=== PATIENT | male | born 1940 | race Caucasian/White ===

== ENCOUNTER 2017-08-04 13:19 | Emergency (ER) | payer MEDICARE, OTHER ==
[2017-08-04] MEDS ORDERED: Bupivacaine 0.5% 30 ML SDV ONE (14:05)
[2017-08-04] MEDS ORDERED: Sodium Chloride 0.9% 10 ML Syringe FLUSH PRN (14:24)
--- NOTE | 2017-08-04 14:28 | EDM.PDOC ---
ED HPI GENERAL MEDICAL PROBLEM - General Chief Complaint: Skin Complaint Stated Complaint: R RING FINGER CUT Time Seen by Provider: 08/04/17 14:00 Source of Information: Reports: Patient, Family History Limitations: Reports: No Limitations - History of Present Illness INITIAL COMMENTS - FREE TEXT/NARRATIVE: 77-year-old male amputated the distal aspect of his index finger on the left hand with a table saw. It happened just prior to coming into the hospital. No other injury. Onset: Sudden Duration: Hour(s): Severity: Moderate Associated Symptoms: Reports: No Other Symptoms - Related Data Allergies Allergy/AdvReac Type Severity Reaction Status Date / Time No Known Allergies Allergy Verified 01/23/14 11:53 Past Medical History Cardiovascular History: Reports: Heart Murmur Oncologic (Cancer) History: Reports: Prostate Other Oncologic History: seeds placed 1 yr ago - Past Surgical History HEENT Surgical History: Reports: Tonsillectomy Social & Family History - Tobacco Use Smoking Status *Q: Never Smoker ED ROS GENERAL - Review of Systems Review Of Systems: See Below Constitutional: Denies: Fever, Chills Respiratory: Denies: Shortness of Breath Cardiovascular: Denies: Chest Pain GI/Abdominal: Denies: Nausea, Vomiting Neurological: Reports: No Symptoms ED EXAM, SKIN/RASH Exam: See Below Exam Limited By: No Limitations General Appearance: Alert, No Apparent Distress Respiratory/Chest: No Respiratory Distress Extremities: Other (Exam is otherwise limited to the left hand. The patient has a transverse amputation of the index finger through the middle phalanx proximal to the DIP joint) Course - Vital Signs Last Recorded V/S: Last Vital Signs Temp 97.0 F 08/04/17 13:41 Pulse 68 08/04/17 13:41 Resp 14 08/04/17 13:41 BP 161/85 H 08/04/17 13:41 Pulse Ox 98 08/04/17 13:41 - Orders/Labs/Meds Orders: Active Orders 24 hr Category Date Time Status Fingers Second Digit Lt F1 [CR] Stat Exams 08/04/17 14:24 Taken Saline Lock Insert [OM.PC] Routine Oth 08/04/17 14:24 Ordered Meds: Medications Discontinued Medications Generic Name Dose Route Start Last Admin Trade Name Freq PRN Reason Stop Dose Admin Bupivacaine HCl Confirm 08/04/17 14:05 Marcaine 0.5% Administered 08/04/17 14:06 Dose 30 ml .ROUTE .STK-MED ONE Bupivacaine HCl 30 ml 08/04/17 15:56 08/04/17 16:01 Marcaine 0.5% INFILT 08/04/17 15:57 30 ml ONETIME ONE Administration Cefazolin Sodium/Dextrose 1 gm 50 mls @ 100 mls/hr 08/04/17 14:32 08/04/17 15 :44 / Premix IV 08/04/17 14:53 100 mls/hr ONETIME ONE Administration Sodium Chloride 10 ml 08/04/17 14:24 08/04/17 15:42 Saline Flush FLUSH 10 ml ASDIRECTED PRN Administration Keep Vein Open - Re-Assessments/Exams Free Text/Narrative Re-Assessment/Exam: 08/04/17 14:27 The distal finger was placed on ice, and phone consultations were made to hand surgery and transplant surgery. The advice was to not try to reattach the finger because of his age and the distal nature of the amputation. Orthopedics was then consult at for closure, a finger x-ray was taken and a bupivacaine block was placed in to the finger. Dr. Randall of the orthopedics Department at [facility] was kind enough to see the patient in the emergency room and close the finger. 08/04/17 15:03 After the procedure the patient was discharged on cephalexin 500 mg 3 times a day, given 20 hydrocodone and will recheck in the orthopedic department next Monday. Departure - Departure Time of Disposition: 16:25 Disposition: Home, Self-Care 01 Condition: Good Clinical Impression: Traumatic amputation of finger of left hand Qualifiers: Encounter type: initial encounter Qualified Code(s): S68.119A - Complete traumatic metacarpophalangeal amputation of unspecified finger, initial encounter - Discharge Information Instructions: Sutured Wound Care, [id number] Referrals: Mario Rios MD [Primary Care Provider] - Forms: ED Department Discharge Care Plan Goals: Keep wound covered and clean while healing. Take antibiotic as prescribed, pain medications as needed and recheck in the orthopedic clinic next Monday. Return to the emergency room sooner if you develop concerns. - My Orders Last 24 Hours: My Active Orders 08/04/17 14:24 Fingers Second Digit Lt F1 [CR] Stat Saline Lock Insert [OM.PC] Routine - Assessment/Plan Last 24 Hours: My Active Orders 08/04/17 14:24 Fingers Second Digit Lt F1 [CR] Stat Saline Lock Insert [OM.PC] Routine
[2017-08-04] MEDS ORDERED: ceFAZolin 1 GM in Premix Bag 1 BAG IV ONE (14:32)
[2017-08-04] MEDS ORDERED: Bupivacaine 0.5% 30 ML SDV INFILT ONE (15:56)
--- NOTE | 2017-08-08 08:43 | CR ---
Fingers Second Digit Lt F1 INDICATION: injury COMPARISON: None FINDINGS: 3 views. Amputation injury at the level of the proximal end of the middle phalanx of the second digit.
--- NOTE | 2017-08-08 09:45 | CONS ---
DATE OF SERVICE: 08/04/2017 CONSULTING PHYSICIAN: KYLE Nassar REFERRED BY: ED provider. HISTORY OF PRESENT ILLNESS: The patient is a 77-year-old gentleman, who came with a diagnosis of a traumatic amputation at middle phalanx, left index. Plan irrigation and debridement, revision of amputation, and closure of the wound. The patient is a 77-year-old gentleman, who was working with a saw and had an amputation of the finger. He brought the finger with him, and he came to [facility], where the ER provider called a hand surgeon, and they advised that they do not do implantation of this type of injury; hence, Orthopedics was consulted. The patient denied any other injury. PAST MEDICAL HISTORY: Reviewed. REVIEW OF SYSTEMS: No symptoms of cough, breathlessness, or chest pain. PHYSICAL EXAMINATION: Left hand revealed traumatic amputation transversely at the middle phalanx level. The rest of the finger was lying separately. There was some oozing from the wound. X-ray was reviewed, which showed that part of the middle phalanx was left over, and the rest of it was gone. The patient could, a little bit, flex and extend. At this stage, we had discussion with the patient that we need to revise it to close the skin. The patient's tetanus was updated, and antibiotic was given. Before I reached there, the patient already had a digital block, which was given by the ER provider. The patient agreed to the revision of the amputation and closure of the wound. KYLE Nassar /[id number]
--- NOTE | 2017-08-08 10:19 | OR ---
DATE OF PROCEDURE: 08/04/2017 PREOPERATIVE DIAGNOSIS: Traumatic amputation, middle phalanx, labeled left index finger. POSTOPERATIVE DIAGNOSIS: Traumatic amputation, middle phalanx, labeled left index finger. PROCEDURES DONE: 1. Irrigation and debridement. 2. Revision of the amputation with closure of the wound. DESCRIPTION OF PROCEDURE: The patient was seen in the emergency room. The patient already had received digital block from the ER provider. Informed consent was taken after that. Time-out was done. The patient already had received the antibiotic, and he is updated for tetanus. Irrigation and debridement of the hand was done, after scrubbing, prepping, and draping of the left index finger. The bone was exposed. Wound was tamed a little bit with the help of the nibbler, and then skin was approximated with 3-0 nylon. Dressing was done with Xeroform, 4 x 4, and Cullen. The patient tolerated the procedure well. The patient's finger was splinted, and he will go home today. He will be going on antibiotic and painkiller. He will be back on Monday or Monday in the Ortho Clinic for wound inspection, but if there is any concern before that during the weekend, he will come to the emergency room. The patient was explained about it, as well as the ER provider was also informed. KYLE Nassar /[id number]
== END 2017-08-04 16:26 | disposition home or self-care (01) ==
LOC: JP.ED 13:19
DX: S68.611A Complete traumatic transphalangeal amputation of left index finger, initial encounter (principal); W31.2XXA Contact with powered woodworking and forming machines, initial encounter
CPT/HCPCS: 64450; 73140; 96365; 99283; 99284; J0690; J7050; 64400

== ENCOUNTER 2021-02-26 15:23 | Emergency (ER) | payer MEDICARE, OTHER ==
--- NOTE | 2021-02-26 16:49 | EDM.PDOC ---
ED HPI GENERAL MEDICAL PROBLEM - General Chief Complaint: Respiratory Problem Stated Complaint: SOB, CHEST PAIN Time Seen by Provider: 02/26/21 16:35 History Limitations: Reports: No Limitations - History of Present Illness INITIAL COMMENTS - FREE TEXT/NARRATIVE: 80 year old male presenting with shortness of breath. The patient reports increasing shortness of breath over the past one month. He reports that he feels like he is breathing faster than normal and breathing more shallow than normal. He denies associated fever, chills, or cough. The SOB is not positional or activity related. He reports associated chest discomfort that he describes as feeling like he is suffocating. no history of DVT/PE. No leg swelling. - Related Data Allergies Allergy/AdvReac Type Severity Reaction Status Date / Time No Known Allergies Allergy Verified 02/26/21 16:24 Home Meds: Home Meds NK [No Known Home Meds] 02/26/21 [History] Past Medical History Cardiovascular History: Reports: Heart Murmur Oncologic (Cancer) History: Reports: Prostate Other Oncologic History: seeds placed 1 yr ago - Past Surgical History HEENT Surgical History: Reports: Tonsillectomy Social & Family History - Family History Family Medical History: No Pertinent Family History - Tobacco Use Tobacco Use Status *Q: Never Tobacco User ED ROS GENERAL - Review of Systems Review Of Systems: Comprehensive ROS is negative, except as noted in HPI. ED EXAM, GENERAL - Physical Exam Exam: See Below Exam Limited By: No Limitations General Appearance: Alert, No Apparent Distress Nose: Normal Inspection Throat/Mouth: Normal Inspection Head: Atraumatic, Normocephalic Neck: Supple, Full Range of Motion Respiratory/Chest: No Respiratory Distress, Lungs Clear, No Accessory Muscle Use, Crackles (bases bilaterally) Cardiovascular: Normal Peripheral Pulses, Regular Rate, Rhythm, No Edema GI/Abdominal: Soft, Non-Tender Extremities: Normal Range of Motion. No: Pedal Edema Neurological: Alert, Oriented, CN II-XII Intact, Normal Cognition, No Motor/Sensory Deficits Psychiatric: Normal Affect, Normal Mood Skin Exam: Warm, Dry #1 Interpretation EKG Date: 02/26/21 Time: 17:05 Rhythm: Other (Sinus Bradycardia) Rate (Beats/Min): 57 P-Wave: Present QRS: Other (Incomplete RBBB) ST-T: Normal NM/PQ Interval: NM interval is borderline prolonged Comparison: NA - No Prior EKG Course - Vital Signs Last Recorded V/S: Last Vital Signs Temp 97.1 F 02/26/21 16:25 Pulse 53 L 02/26/21 19:51 Resp 15 02/26/21 19:51 BP 159/75 H 02/26/21 19:51 Pulse Ox 99 02/26/21 19:51 - Orders/Labs/Meds Orders: Active Orders 24 hr Category Date Time Status EKG Documentation Completion [RC] ASDIRECTED Care 02/26/21 16:41 Active Chest 2V [CR] Stat Exams 02/26/21 16:46 Taken Iopamidol [Isovue-370 (76%)] Med 02/26/21 18:45 Active 70 ml IV . DIRECTED Sodium Chloride 0.9% [Normal Saline] 1,000 ml Med 02/26/21 19:15 Active IV ASDIRECTED Sodium Chloride 0.9% [Normal Saline] 100 ml Med 02/26/21 18:45 Active IV ASDIRECTED Isolation [COMM] Stat Oth 02/26/21 16:49 Ordered EKG 12 Lead [EK] Stat Ther 02/26/21 16:40 Ordered Medication Orders Sodium Chloride (Normal Saline) 100 mls @ 3.5 mls/sec IV ASDIRECTED THEODORE Last Admin: 02/26/21 18:57 Dose: 4 mls/sec Documented by: LILA Sodium Chloride (Normal Saline) 1,000 mls @ 1,000 mls/hr IV ASDIRECTED THEODORE Iopamidol (Iopamidol 755 Mg/Ml 100 Ml Bottle) 70 ml IV . DIRECTED [facility] Last Admin: 02/26/21 18:57 Dose: 70 ml Documented by: LILA Labs: Laboratory Tests 02/26/21 02/26/21 02/26/21 Range/Units 17:04 17:04 17:04 WBC 7.0 (4.5-11.0) K/uL RBC 4.17 L (4.30-5.90) M/uL Hgb 12.9 (12.0-15.0) g/dL Hct 38.2 L (40.0-54.0) % MCV 92 (80-98) fL MCH 31 (27-31) pg MCHC 34 (32-36) % Plt Count 218 (150-400) K/uL Neut % (Auto) 57.6 (36-66) % Lymph % (Auto) 26.9 (24-44) % [place] % (Auto) 13.3 H (2-6) % Eos % (Auto) 1.9 L (2-4) % Baso % (Auto) 0.3 (0-1) % Sodium 141 (140-148) mmol/L Potassium 4.6 (3.6-5.2) mmol/L Chloride 106 (100-108) mmol/L Carbon Dioxide 29 (21-32) mmol/L Anion Gap 6.2 (5.0-14.0) mmol/L BUN 18 (7-18) mg/dL Creatinine 1.4 H (0.8-1.3) mg/dL Est Cr Clr Drug Dosing 44.65 mL/min Estimated GFR (MDRD) 49 L (>60) Glucose 91 (74-106) mg/dL Calcium 8.8 (8.5-10.1) mg/dL Total Bilirubin 0.3 (0.2-1.0) mg/dL AST 32 (15-37) U/L ALT 32 (12-78) U/L Alkaline Phosphatase 78 (46-116) U/L Troponin I < 0.017 (0.000-0.056) ng/mL NT-Pro-B Natriuret Pep 406 (5-450) pg/mL Total Protein 6.7 (6.4-8.2) g/dL Albumin 3.4 (3.4-5.0) g/dL Globulin 3.3 (2.3-3.5) g/dL Albumin/Globulin Ratio 1.0 L (1.2-2.2) Urine Color (YELLOW) Urine Appearance (CLEAR) Urine pH (5.0-8.0) Ur Specific [place] (1.008-1.030) Urine Protein (NEGATIVE) mg/dL Urine Glucose (UA) (NEGATIVE) mg/dL Urine Ketones (NEGATIVE) mg/dL Urine Occult Blood (NEGATIVE) Urine Nitrite (NEGATIVE) Urine Bilirubin (NEGATIVE) Urine Urobilinogen (0.2-1.0) EU/dL Ur Leukocyte Esterase (NEGATIVE) Urine RBC (0-5) Urine WBC (0-5) Ur Epithelial Cells Amorphous Sediment Urine Bacteria Urine Mucus Urine Other Influenza Type A RNA (NEGATIVE) RSV RNA (INAAT) (NEGATIVE) Influenza Type B RNA (NEGATIVE) SARS-CoV-2 RNA (DUSTIN) (NEGATIVE) 02/26/21 02/26/21 Range/Units 17:30 18:30 WBC (4.5-11.0) K/uL RBC (4.30-5.90) M/uL Hgb (12.0-15.0) g/dL Hct (40.0-54.0) % MCV (80-98) fL MCH (27-31) pg MCHC (32-36) % Plt Count (150-400) K/uL Neut % (Auto) (36-66) % Lymph % (Auto) (24-44) % [place] % (Auto) (2-6) % Eos % (Auto) (2-4) % Baso % (Auto) (0-1) % Sodium (140-148) mmol/L Potassium (3.6-5.2) mmol/L Chloride (100-108) mmol/L Carbon Dioxide (21-32) mmol/L Anion Gap (5.0-14.0) mmol/L BUN (7-18) mg/dL Creatinine (0.8-1.3) mg/dL Est Cr Clr Drug Dosing mL/min Estimated GFR (MDRD) (>60) Glucose (74-106) mg/dL Calcium (8.5-10.1) mg/dL Total Bilirubin (0.2-1.0) mg/dL AST (15-37) U/L ALT (12-78) U/L Alkaline Phosphatase (46-116) U/L Troponin I (0.000-0.056) ng/mL NT-Pro-B Natriuret Pep (5-450) pg/mL Total Protein (6.4-8.2) g/dL Albumin (3.4-5.0) g/dL Globulin (2.3-3.5) g/dL Albumin/Globulin Ratio (1.2-2.2) Urine Color Yellow (YELLOW) Urine Appearance Slightly cloudy A (CLEAR) Urine pH 7.0 (5.0-8.0) Ur Specific [place] 1.020 (1.008-1.030) Urine Protein Negative (NEGATIVE) mg/dL Urine Glucose (UA) Negative (NEGATIVE) mg/dL Urine Ketones Negative (NEGATIVE) mg/dL Urine Occult Blood Moderate H (NEGATIVE) Urine Nitrite Negative (NEGATIVE) Urine Bilirubin Negative (NEGATIVE) Urine Urobilinogen 0.2 (0.2-1.0) EU/dL Ur Leukocyte Esterase Negative (NEGATIVE) Urine RBC 75-100 H (0-5) Urine WBC Not seen (0-5) Ur Epithelial Cells Occasional Amorphous Sediment Few Urine Bacteria Few Urine Mucus Not seen Urine Other See note Influenza Type A RNA Negative (NEGATIVE) RSV RNA (INAAT) Negative (NEGATIVE) Influenza Type B RNA Negative (NEGATIVE) SARS-CoV-2 RNA (DUSTIN) Negative (NEGATIVE) Meds: Medications Generic Name Dose Route Start Last Admin Trade Name Freq PRN Reason Stop Dose Admin Sodium Chloride 100 mls @ 3.5 mls/sec 02/26/21 18:45 02/26/21 18:57 Normal Saline IV 4 mls/sec ASDIRECTED THEODORE Administration Sodium Chloride 1,000 mls @ 1,000 mls/hr 02/26/21 19:15 Normal Saline IV ASDIRECTED THEODORE Iopamidol 70 ml 02/26/21 18:45 02/26/21 18:57 Iopamidol 755 Mg/Ml 100 Ml Bottle IV 70 ml . DIRECTED THEODORE Administration Discontinued Medications Generic Name Dose Route Start Last Admin Trade Name Freq PRN Reason Stop Dose Admin Sodium Chloride 10 ml 02/26/21 18:34 02/26/21 18:57 Sodium Chloride 0.9% 10 Ml Syringe FLUSH 02/26/21 18:35 10 ml ONETIME ONE Administration Departure - Departure Time of Disposition: 20:15 Disposition: Home, Self-Care 01 Condition: Good Clinical Impression: Shortness of breath - Discharge Information Instructions: Shortness of Breath, Adult Referrals: PCP,None [Primary Care Provider] - Forms: ED Department Discharge Additional Instructions: The exact cause of your symptoms is not known at this time. However, we have ruled out serious causes such as infection and blood clots today. You do have a nodule in your lung that requires follow up in the clinic, but this is not likely the cause of your symptoms. Please follow up in clinic to establish care with a provider. Return to the emergency department for any new or worsening symptoms. Sepsis Event Note (ED) - Evaluation Sepsis Screening Result: No Definite Risk - Focused Exam Vital Signs: Vital Signs Temp Pulse Resp BP Pulse Ox 02/26/21 19:51 53 L 15 159/75 H 99 02/26/21 17:36 57 L 160/70 H 02/26/21 16:25 97.1 F 59 L 16 158/69 H 98 02/26/21 16:15 97.1 F 59 L 16 158/69 H 98 - Problem List Review Problem List Initiated/Reviewed/Updated: Yes - My Orders Last 24 Hours: My Active Orders 02/26/21 16:40 EKG 12 Lead [EK] Stat 02/26/21 16:41 EKG Documentation Completion [RC] ASDIRECTED 02/26/21 16:46 Chest 2V [CR] Stat 02/26/21 16:49 Isolation [COMM] Stat 02/26/21 18:45 Iopamidol [Isovue-370 (76%)] 70 ml IV . DIRECTED Sodium Chloride 0.9% [Normal Saline] 100 ml IV ASDIRECTED 02/26/21 19:15 Sodium Chloride 0.9% [Normal Saline] 1,000 ml IV ASDIRECTED - Assessment/Plan Last 24 Hours: My Active Orders 02/26/21 16:40 EKG 12 Lead [EK] Stat 02/26/21 16:41 EKG Documentation Completion [RC] ASDIRECTED 02/26/21 16:46 Chest 2V [CR] Stat 02/26/21 16:49 Isolation [COMM] Stat 02/26/21 18:45 Iopamidol [Isovue-370 (76%)] 70 ml IV . DIRECTED Sodium Chloride 0.9% [Normal Saline] 100 ml IV ASDIRECTED 02/26/21 19:15 Sodium Chloride 0.9% [Normal Saline] 1,000 ml IV ASDIRECTED Assessment:: This is an 80 year old male presenting with shortness of breath over the past month or so. He is afebrile here with normal oxygen saturations. Differential diagnosis considered includes but is not limited to ACS, CHF, PE, pneumonia, pneumothorax, among others. EKG did not show any evidence of acute ischemia. Troponin is negative. His symptoms are not exertional and I do not think they are cardiac in etiology. There is no evidence of pulmonary edema on CXR and BNP is normal, making CHF unlikely. The remainder of his labs are unremarkable aside from mild creatinine elevation at 1.4, baseline is not known as he does not see a provider regularly. CT pulmonary angio was obtained and did not show any evidence of aortic dissection or PE. A pulmonary nodule was noted, which the p [facility] states he was informed of previously. He will follow up in clinic for this. COVID and influenza are negative. There is no history of asthma or COPD and no wheezing on exam today to suggest these. The exact cause of his symptoms is not clear at this time, but serious pathology has been ruled out today. he has maintained normal oxygen saturations here without any respiratory distress. He was also noted to have hematuria, which he reports happens intermittently to him. He needs to follow up in clinic for this. He is appropriate for discharge home with close follow up in clinic to establish primary care. He was instructed to return to the ED for any new or worsening symptoms.
[2021-02-26 18:08] LABS: CORONAVIRUS COVID-19 NAA NEGATIVE (NEGATIVE)
[2021-02-26] MEDS ORDERED: Sodium Chloride 0.9% 10 ML Syringe FLUSH ONE (18:34)
[2021-02-26] MEDS ORDERED: Sodium Chloride 0.9% 100 ML IV SCH (18:45)
[2021-02-26] MEDS ORDERED: Iopamidol 755 Mg/ML 100 ML Bottle IV SCH (18:45)
[2021-02-26] MEDS ORDERED: Sodium Chloride 0.9% 1,000 ML IV SCH (19:15)
--- NOTE | 2021-02-26 19:56 | CRLCT ---
For Patients: As a result of the Century Cures Act, medical imaging exams and procedure reports are released immediately into your electronic medical record. You may view this report before your referring provider. If you have questions, please contact your health care provider. Indication: Shortness of breath evaluate for PE Technique: Contrast enhanced CT PE with 70 mL Isovue 370 Comparison: No comparison Findings: No thoracic aortic aneurysm. 5 millimeter right middle lobe pulmonary nodule series 5, image 99. Basilar atelectasis. No central endobronchial lesion. No pulmonary emboli seen. Nonobstructing punctate right renal calculus. Small hiatal hernia. No suspicious bony lesions. Impression: 1. No pulmonary emboli. 2. 5 millimeter right lower lobe pulmonary nodule follow-up per Fleischner society guidelines. Please note that all CT scans at this facility use dose modulation, iterative reconstruction, and/or weight-based dosing when appropriate to reduce radiation dose to as low as reasonably achievable. Dictated by Danna Sanchez MD @ 02/26/2021 7:55:[address] Danna Sanchez @ Feb 26 2021 7:55PM
--- NOTE | 2021-03-01 09:15 | CR ---
CHEST: 2 view CLINICAL HISTORY:Shortness of breath COMPARISON:None available FINDINGS: The heart size, pulmonary vascularity and hilar structures are normal. No infiltrate effusion or pneumothorax is seen. There are atherosclerotic changes in the aorta. IMPRESSION: No acute cardiopulmonary process.
== END 2021-02-26 20:28 | disposition home or self-care (01) ==
LOC: JP.ED 15:23
DX: R06.02 Shortness of breath (principal); Z20.822 Contact with and (suspected) exposure to COVID-19
CPT/HCPCS: 0241U; 36415; 71046; 71275; 80053; 81001; 83880; 84484; 85025; 93005; 99285; Q9967

== ENCOUNTER 2021-08-09 17:19 | Emergency (ER) | payer MEDICARE, OTHER ==
[2021-08-09] MEDS ORDERED: Bacitracin Oint 1 GM U/D Packet TOP ONE (18:25)
--- NOTE | 2021-08-09 19:12 | EDM.PDOC ---
ED HPI GENERAL MEDICAL PROBLEM - General Chief Complaint: Laceration Stated Complaint: R THUMB LACERATION Time Seen by Provider: 08/09/21 18:30 Source of Information: Reports: Patient History Limitations: Reports: No Limitations - History of Present Illness INITIAL COMMENTS - FREE TEXT/NARRATIVE: 81-year-old male was working with a table saw when he cut his right thumb less than 1 hour ago. He has a fairly significant flap laceration on the ulnar aspect of the right thumb that goes from the tip of the thumb down the side of the nail almost to the IP joint. No other injury. Onset: Sudden Duration: Hour(s): (1 hour ago) Location: Reports: Upper Extremity, Right Associated Symptoms: Reports: No Other Symptoms - Related Data Allergies Allergy/AdvReac Type Severity Reaction Status Date / Time No Known Allergies Allergy Verified 08/09/21 18:13 Home Meds: Home Meds NK [No Known Home Meds] 02/26/21 [History] Past Medical History Cardiovascular History: Reports: Heart Murmur Musculoskeletal History: Reports: Fracture Oncologic (Cancer) History: Reports: Prostate Other Oncologic History: seeds placed 1 yr ago - Past Surgical History HEENT Surgical History: Reports: Tonsillectomy Male Surgical History: Reports: TURP-Transurethral Resection of Prostate, Other (See Below) Other Male Surgeries/Procedures: 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 Denies: Nausea, Vomiting Neurological: Reports: Paresthesia (The end of the thumb is numb) ED EXAM, SKIN/RASH Exam: See Below Exam Limited By: No Limitations General Appearance: Alert, No Apparent Distress Head: Atraumatic Respiratory/Chest: No Respiratory Distress Cardiovascular: Regular Rate, Rhythm Extremities: Other (Exam is otherwise limited to the right hand. The patient has a 6 cm flap laceration on the ulnar aspect of the right thumb, deep into the subcutaneous tissue. There is numbness at the tip of the thumb) Neurological: Alert, Oriented Course - Vital Signs Last Recorded V/S: Last Vital Signs Temp 97.9 F 08/09/21 18:10 Pulse 66 08/09/21 18:21 Resp 16 08/09/21 18:21 BP 161/79 H 08/09/21 18:21 Pulse Ox 98 08/09/21 18:21 - Orders/Labs/Meds Orders: Active Orders 24 hr Category Date Time Status Fingers Thumb Rt F5 [CR] Stat Exams 08/09/21 18:26 Taken Meds: Medications Discontinued Medications Generic Name Dose Route Start Last Admin Trade Name Lisandro PRN Reason Stop Dose Admin Bacitracin 1 dose 08/09/21 18:25 08/09/21 18:29 Bacitracin Oint 1 Gm U/D Packet TOP 08/09/21 18:26 1 dose ONETIME ONE Administration Lidocaine HCl 5 ml 08/09/21 18:25 08/09/21 18:30 Lidocaine 1% 5 Ml Sdv INJECT 08/09/21 18:26 5 ml ONETIME ONE Administration - Re-Assessments/Exams Free Text/Narrative Re-Assessment/Exam: 08/09/21 19:10 The area was anesthetized with 1% lidocaine, then an x-ray of the thumb was obtained that showed no damage to the distal phalanx. The wound was then soaked for 5 minutes then cleansed thoroughly with normal saline. No foreign body was found. Some trimming of the edges was needed for good approximation, then nine 5-0 Ethilon sutures were used to close the flap. Topical bacitracin and tube gauze was applied, the patient was given an aluminum splint to wear in the future for protection. Sutures can be removed next Monday the . His tetanus is current, he should keep the wound covered and clean while healing. Departure - Departure Time of Disposition: 19:13 Disposition: Home, Self-Care 01 Clinical Impression: Laceration of right thumb Qualifiers: Encounter type: initial encounter Damage to nail status: without damage Foreign body presence: without foreign body Qualified Code(s): S61.011A - Laceration without foreign body of right thumb without damage to nail, initial encounter - Discharge Information Instructions: Laceration Care, Adult Referrals: PCP,None [Primary Care Provider] - Forms: ED Department Discharge Care Plan Goals: Keep the wound covered, protected and clean while healing and sutures can be removed next August 18. Recheck sooner if concerns of infection or not healing satisfactorily. Sepsis Event Note (ED) - Evaluation Sepsis Screening Result: No Definite Risk - Focused Exam Vital Signs: Vital Signs Temp Pulse Resp BP Pulse Ox 08/09/21 18:21 66 16 161/79 H 98 08/09/21 18:10 97.9 F 68 16 161/79 H 97 - My Orders Last 24 Hours: My Active Orders 08/09/21 18:26 Fingers Thumb Rt F5 [CR] Stat - Assessment/Plan Last 24 Hours: My Active Orders 08/09/21 18:26 Fingers Thumb Rt F5 [CR] Stat
--- NOTE | 2021-08-10 09:33 | CR ---
Fingers Thumb Rt F5 CLINICAL HISTORY: Injury FINDINGS: No fracture or dislocation is identified. 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 No focal performed body seen IMPRESSION: No fracture or foreign body
== END 2021-08-09 19:24 | disposition home or self-care (01) ==
LOC: JP.ED 17:19
DX: S61.011A Laceration without foreign body of right thumb without damage to nail, initial encounter (principal); W27.0XXA Contact with workbench tool, initial encounter
CPT/HCPCS: 12002; 73140-26-F5; 73140-F5; 99283-25

== ENCOUNTER 2022-05-07 15:15 | Emergency (ER) | payer MEDICARE, OTHER ==
[2022-05-07] MEDS ORDERED: Acetaminophen 500 MG Tab PO ONE (15:52)
== END 2022-05-07 16:10 | disposition home or self-care (01) ==
LOC: JP.ED 15:15
DX: S93.402A Sprain of unspecified ligament of left ankle, initial encounter (principal); S90.32XA Contusion of left foot, initial encounter; Z79.899 Other long term (current) drug therapy; Z79.01 Long term (current) use of anticoagulants; W18.39XA Other fall on same level, initial encounter
CPT/HCPCS: 73610; 73630; 99282; 99283; A9270

== ENCOUNTER 2022-11-25 08:05 | Inpatient (IN) | payer MEDICARE, OTHER ==
[~2022-11-25 08:05] MED LIST: Bupivacaine 0.5% 50 ML MDV ONE; Bupivacaine 0.5%/EPINEPHrine 1:200,000 50 ML MDV ONE; Lidocaine 1% with EPINEPHrine 1:100,000 50 ML MDV ONE
[2022-11-25] MEDS ORDERED: amLODIPine 5 MG Tab PO ONE (08:26)
[2022-11-25] MEDS ORDERED: ceFAZolin 2 GM in Sodium Chloride 0.9% 50 ML IV ONE (09:30)
[2022-11-25] MEDS ORDERED: ceFAZolin 2 GM in Premix Bag 1 BAG IV ONE (09:30)
[2022-11-25] MEDS: Dextrose 5%-Lactated Ringers 1,000 ML IV SCH ×2 (09:37→13:24)
[2022-11-25] MEDS ORDERED: fentaNYL 100 MCG/2 ML SDV ONE (10:22)
[2022-11-25] MEDS ORDERED: Propofol 200 MG/20 ML SDV ONE ×3 (10:22→11:41)
[2022-11-25] MEDS ORDERED: Acetaminophen 1,000 MG/100 ML Infusion Bottle Premix ONE (11:45)
[2022-11-25] MEDS ORDERED: traMADol 50 MG Tab PO PRN (13:31)
[2022-11-25] MEDS ORDERED: Ondansetron 4 MG/2 ML SDV IVPUSH PRN (14:00)
[2022-11-25] MEDS ORDERED: HYDROmorphone 0.5 MG/0.5 ML Syringe IVPUSH PRN (14:00)
[2022-11-25] MEDS ORDERED: HYDROmorphone 1 MG/ML Syringe IV PRN (14:00)
[2022-11-25] MEDS: Acetaminophen 325 MG Tab PO SCH ×2 (18:32→23:57)
[2022-11-25] MEDS: ceFAZolin 2 GM in Premix Bag 1 BAG IV SCH (18:32)
[2022-11-25] MEDS ORDERED: Tamsulosin 0.4 MG Cap.ER PO SCH (21:00)
[2022-11-25] MEDS ORDERED: Finasteride 5 MG Tab PO SCH (21:00)
[2022-11-26] MEDS: Dextrose 5%-Lactated Ringers 1,000 ML IV SCH
[2022-11-26] MEDS: ceFAZolin 2 GM in Premix Bag 1 BAG IV SCH ×2 (01:29→10:32)
[2022-11-26] MEDS: Acetaminophen 325 MG Tab PO SCH ×2 (05:21→11:23)
[2022-11-26] MEDS ORDERED: Aspirin 81 MG Tab.EC PO SCH (09:00)
[2022-11-26] MEDS ORDERED: amLODIPine 5 MG Tab PO SCH (09:00)
== END 2022-11-26 13:30 | disposition home or self-care (01) | DRG 351 ==
LOC: JP.SDS 08:05 → JP.MS 12:00
PROVIDERS: ADMIT Surgery; ATTEND Surgery
PROC: 0YU50JZ Supplement Right Inguinal Region with Synthetic Substitute, Open Approach (ICD-10-PCS; principal; 2022-11-25)
PROC: 018 Peripheral Nervous System, Division (ICD-10-PCS; 2022-11-25)
PROC: 018 Peripheral Nervous System, Division (ICD-10-PCS; 2022-11-25)
PROC: 018 Peripheral Nervous System, Division (ICD-10-PCS; 2022-11-25)
DX: K40.30 Unilateral inguinal hernia, with obstruction, without gangrene, not specified as recurrent (principal); I13.0 Hypertensive heart and chronic kidney disease with heart failure and stage 1 through stage 4 chronic kidney disease, or unspecified chronic kidney disease; I50.32 Chronic diastolic (congestive) heart failure; K62.7 Radiation proctitis; G57.81 Other specified mononeuropathies of right lower limb; I12.9 Hypertensive chronic kidney disease with stage 1 through stage 4 chronic kidney disease, or unspecified chronic kidney disease; N18.31 Chronic kidney disease, stage 3a; Z79.899 Other long term (current) drug therapy; Z79.82 Long term (current) use of aspirin
CPT/HCPCS: A9270-GY; C1713; C1781; J0131; J0690; J1170; J2704; J3010; J3490; J7121

== ENCOUNTER 2023-01-24 09:22 | Day surgery (SDC) | payer MEDICARE, OTHER ==
[~2023-01-24 09:22] MED LIST changes: -Bupivacaine 0.5%/EPINEPHrine 1:200,000 50 ML MDV ONE; +Meropenem 500 MG SDV ONE
[2023-01-24] MEDS ORDERED: Rocuronium 50 MG/5 ML Vial ONE (09:29)
[2023-01-24] MEDS ORDERED: Glycopyrrolate 0.2 MG/ML 5 ML MDV ONE (09:29)
[2023-01-24] MEDS ORDERED: Succinylcholine 200 MG/10 ML MDV ONE (09:29)
[2023-01-24] MEDS ORDERED: fentaNYL 250 MCG/5 ML SDV ONE (09:29)
[2023-01-24] MEDS ORDERED: Propofol 200 MG/20 ML SDV ONE (09:29)
[2023-01-24] MEDS ORDERED: Ondansetron 4 MG/2 ML SDV ONE (09:29)
[2023-01-24] MEDS ORDERED: Neostigmine Methylsulfate 1 MG/ML 5 ML Syringe ONE (09:29)
[2023-01-24] MEDS ORDERED: Dexamethasone 4 MG/ML SDV ONE (09:29)
[2023-01-24 09:54] LABS: HEMATOCRIT 33.8 % (38.4-49.7); HEMOGLOBIN 11.6 g/dL (12.9-16.9); MEAN CORPUSCULAR HEMOGLOBIN 30.4 pg (31.6-35.5); MEAN CORPUSCULAR HGB CONC 34.3 g/dL (31.6-35.5); MEAN CORPUSCULAR VOLUME 88.7 fL (81.4-99.0); RED BLOOD CELL COUNT 3.81 M/uL (4.14-5.76); WHITE BLOOD CELL COUNT,WBC 9.1 K/uL (3.2-11.0)
[2023-01-24 10:22] LABS: A/G RATIO 0.9 (1.2-2.2); ALANINE AMINOTRANSFERASE,ALT 25 U/L (12-78); ALBUMIN 3.4 g/dL (3.4-5.0); ALKALINE PHOSPHATASE 104 U/L (46-116); ANION GAP 9.4 mmol/L (5.0-14.0); ASPARTATE AMNIOTRANSFERASE,AST 26 U/L (15-37); BILIRUBIN TOTAL 0.5 mg/dL (0.2-1.0); BLOOD UREA NITROGEN,BUN 23 mg/dL (7-18); CALCIUM 8.7 mg/dL (8.5-10.1); CARBON DIOXIDE,CO2 26 mmol/L (21-32); CHLORIDE,CL 106 mmol/L (100-108); CREATININE 1.4 mg/dL (0.8-1.3); ESTIMATED GFR 50 mL/min (>60); GLUCOSE RANDOM 100 mg/dL (74-106); MAGNESIUM 1.9 mg/dL (1.8-2.4); PHOSPHORUS 3.7 mg/dL (2.5-4.9); POTASSIUM,K 3.7 mmol/L (3.6-5.2); PRO B-TYPE NATRIUR PEPT,BNPPRO 762 pg/mL (5-450); PROTEIN TOTAL,TP 7.2 g/dL (6.4-8.2); SODIUM,NA 141 mmol/L (140-148)
[2023-01-24 10:23] LABS: EST CRCL DRUG DOSING (CG) 40.56 mL/min
[2023-01-24] MEDS ORDERED: Dextrose 5%-Lactated Ringers 1,000 ML IV SCH (10:30)
[2023-01-24] MEDS ORDERED: ceFAZolin 2 GM in Premix Bag 1 BAG IV ONE (11:00)
[2023-01-24] MEDS ORDERED: ceFAZolin 2 GM in Sodium Chloride 0.9% 50 ML IV ONE (11:00)
[2023-01-24] MEDS ORDERED: ceFAZolin 1 GM Vial ONE (12:45)
[2023-01-24] MEDS ORDERED: Sodium Chloride 0.9% 10 ML ONE (12:45)
[2023-01-24 12:47] LABS: BODY FLUID TYPE SYNOVIAL FLUID
[2023-01-24 13:30] LABS: MONONUCLEAR, BODY FLUID 96 %; POLYMORPHONUCLEAR, BODY FLUID 4 %; RBC,BODY FLUID 757 /ul; WBC BODY FLUID 71 /ul
[2023-01-24] MEDS ORDERED: Metoclopramide 10 MG/2 ML SDV IVPUSH PRN (15:00)
[2023-01-24] MEDS ORDERED: HYDROmorphone 1 MG/ML Syringe IV PRN (15:00)
[2023-01-24] MEDS ORDERED: Ondansetron 4 MG/2 ML SDV IVPUSH PRN (15:00)
[2023-01-24] MEDS ORDERED: HYDROmorphone 0.5 MG/0.5 ML Syringe IVPUSH PRN (15:00)
== END 2023-01-24 18:00 | disposition home or self-care (01) ==
LOC: JP.SDS 09:22 → JP.2SS 13:15 → JP.SDS 18:00
PROVIDERS: ATTEND Surgery
DX: N62 Hypertrophy of breast (principal); M25.461 Effusion, right knee; I13.0 Hypertensive heart and chronic kidney disease with heart failure and stage 1 through stage 4 chronic kidney disease, or unspecified chronic kidney disease; I50.9 Heart failure, unspecified; N18.30 Chronic kidney disease, stage 3 unspecified; L20.84 Intrinsic (allergic) eczema; I44.0 Atrioventricular block, first degree; Z85.46 Personal history of malignant neoplasm of prostate
CPT/HCPCS: 19300; 20610; 36415; 80053; 83735; 83880; 84100; 84560; 85027; 87070; 87073; 87075; 87205; 88305; 89050; 89060; 93005; J0131; J0330; J0690; J1100; J2405; J2704; J2710; J3010; J3490; J7121; 93010; J2020; J2185

== ENCOUNTER 2023-11-16 06:57 | Day surgery (SDC) | payer MEDICARE, OTHER ==
[2023-11-16] MEDS: Sodium Chloride 0.9% 10 ML Syringe FLUSH PRN (07:47)
== END 2023-11-16 08:53 | disposition home or self-care (01) ==
LOC: JP.SDS 06:57
PROVIDERS: ATTEND Ophthalmology
DX: H25.11 Age-related nuclear cataract, right eye (principal); K21.9 Gastro-esophageal reflux disease without esophagitis; Z79.899 Other long term (current) drug therapy
CPT/HCPCS: 66984; J3490; V2632

== ENCOUNTER 2023-11-30 05:55 | Day surgery (SDC) | payer MEDICARE, OTHER ==
[2023-11-30] MEDS: Sodium Chloride 0.9% 10 ML Syringe FLUSH PRN (06:41)
== END 2023-11-30 08:04 | disposition home or self-care (01) ==
LOC: JP.SDS 05:55
PROVIDERS: ATTEND Ophthalmology
DX: H25.12 Age-related nuclear cataract, left eye (principal)
CPT/HCPCS: 66984; J3490; V2632